=== PATIENT | male | born 1990 | race Caucasian/White ===

== ENCOUNTER 2017-11-24 12:33 | Emergency (ER) | payer OTHER ==
[~2017-11-24] VITALS: Ht 175.3 cm; Wt 61.4 kg
[~2017-11-24 12:33] MED LIST: CYCL-1 PO; ONDA8TAB9 PO
[2017-11-24 13:19] LABS: BASOPHILS % (AUTO) 0 % (0-1); EOSINOPHILS % (AUTO) 0.3 % (0-6); HEMATOCRIT 46.9 % (42.0-52.0); HEMOGLOBIN 15.9 g/dl (14.0-17.9); LYMPHOCYTES # (AUTO) 0.7 X10'3 (1.1-4.8); LYMPHOCYTES % (AUTO) 6.1 % (21-51); MEAN CORPUSCULAR HEMOGLOBIN 28.9 PG (27.0-31.0); MEAN CORPUSCULAR VOLUME 84.9 FL (78-98); MEAN PLATELET VOLUME 8.7 FL (7.4-10.4); MONOCYTES # (AUTO) 0.2 X10'3 (0-0.9); MONOCYTES % (AUTO) 1.3 % (2-12); NEUTROPHILS # (AUTO) 10.7 X10'3 (1.8-7.7); NEUTROPHILS % (AUTO) 92.3 % (42-75); PLATELET COUNT 116 X10'3 (140-440); RED BLOOD COUNT 5.52 X10'6 (4.70-6.10); RED CELL DISTRIBUTION WIDTH 12.3 % (11.5-14.5); WHITE BLOOD COUNT 11.6 X10'3 (4.5-11.0)
[2017-11-24 13:35] LABS: ALANINE AMINOTRANSFERASE 24 U/L (12-78); ALBUMIN 3.5 G/DL (3.4-5.0); ALBUMIN/GLOBULIN RATIO 1.1 (1.1-1.5); ALKALINE PHOSPHATASE 65 IU/L (46-116); ANION GAP 7 (8-16); ASPARTATE AMINO TRANSFERASE 6 U/L (10-37); BILIRUBIN,TOTAL 1.3 MG/DL (0.1-1.0); BLOOD UREA NITROGEN 15 MG/DL (7-18); CHLORIDE 102 MMOL/L (99-107); CREATININE 1.36 MG/DL (0.60-1.10); GLUCOSE 100 MG/DL (70-104); POTASSIUM 3.8 MMOL/L (3.5-5.1); SODIUM 137 MMOL/L (135-145); TOTAL CARBON DIOXIDE 28.5 MMOL/L (24-32); TOTAL PROTEIN 6.7 G/DL (6.4-8.2); eGFR 64 ML/MIN
[2017-11-24] MEDS ORDERED: acetaminophen 325mg tablet PO STA (14:29)
[2017-11-24] MEDS ORDERED: normal saline 1000ML IV soln IV ONE (14:30)
[2017-11-24] MEDS ORDERED: albuterol 2.5 MG/3 ML nebule NEB ONE (14:30)
[2017-11-24] MEDS ORDERED: CefTRIAXone 2gm/D5W 50ml 50 ML IV ONE (14:40)
[2017-11-24] MEDS ORDERED: morphine 4 MG/ML inj SYRINge IV ONE ×2 (15:15→17:05)
[2017-11-24] MEDS ORDERED: LORazepam 2 mg/ml vial IV ONE (15:15)
[2017-11-24] MEDS ORDERED: GUAI473S11 PO (16:09)
[2017-11-24] MEDS ORDERED: AZIT250T2 PO (16:09)
[2017-11-24] MEDS ORDERED: CEPH-571 PO (16:09)
[2017-11-24] MEDS ORDERED: PRED20TA PO (16:09)
[2017-11-24] MEDS ORDERED: ALBU6.7H INH (16:09)
[2017-11-24] MEDS ORDERED: ketorolac trometh. 30mg/ml inj. IV ONE (17:05)
[2017-11-24] MEDS ORDERED: methylPREDNISolone sod succ 125mg/2ml vial IV ONE (17:05)
[2017-11-24 17:52] VITALS: BP 103/56
== END 2017-11-24 17:54 | disposition home or self-care (01) ==
LOC: ER 12:34
DX: J18.1 Lobar pneumonia, unspecified organism (principal); F17.200 Nicotine dependence, unspecified, uncomplicated; Z98.890 Other specified postprocedural states; Z88.0 Allergy status to penicillin; Z79.899 Other long term (current) drug therapy
CPT/HCPCS: 36415; 71046; 80053; 83605; 85025; 87040; 87077; 87186; 94640; 94760; 96365; 96375; 96376; 99285; J0696; J1885; J2060; J2270; J2930; J7030

== ENCOUNTER 2023-10-13 15:39 | Emergency (ER) | payer MEDICAID, OTHER ==
[~2023-10-13] VITALS: Ht 172.7 cm; Wt 59.1 kg
[~2023-10-13 15:39] MED LIST changes: +ALBU6.7H14 INH; +CEPH-571 PO
[2023-10-13 15:40] VITALS: BP 129/85; PULSE 94; O2SAT 100
[2023-10-13] MEDS: HYDROcodone/acetaminophen 10/325mg tab PO ONE (19:01)
[2023-10-13] MEDS: ondansetron 4mg rapidly disintigrating tab PO ONE (19:02)
[2023-10-13 20:50] VITALS: RESP 17; TEMP 98
== END 2023-10-13 20:52 | disposition home or self-care (01) ==
LOC: ER 15:40
DX: S06.0X0A Concussion without loss of consciousness, initial encounter (principal); S01.112A Laceration without foreign body of left eyelid and periocular area, initial encounter; Z88.0 Allergy status to penicillin; W22.8XXA Striking against or struck by other objects, initial encounter; Y93.89 Activity, other specified; Y92.89 Other specified places as the place of occurrence of the external cause; Y99.8 Other external cause status
CPT/HCPCS: 70450; 70486; 99284; J7030; A6449

== ENCOUNTER 2024-02-07 12:56 | Emergency (ER) | payer MEDICAID ==
[~2024-02-07] VITALS: Ht 170.2 cm; Wt 65.0 kg
[2024-02-07 12:56] VITALS: BP 147/91; PULSE 110; RESP 18; TEMP 97.4; O2SAT 97
[2024-02-07] MEDS: TETanus/Pertussis (Acell)/Diphther VAC/PF (Tdap-Adult) 0.5ml syringe IMVAC ONE (14:38)
== END 2024-02-07 15:09 | disposition home or self-care (01) ==
LOC: ER 12:56
DX: S61.411A Laceration without foreign body of right hand, initial encounter (principal); Z88.0 Allergy status to penicillin; Z79.899 Other long term (current) drug therapy; Z79.2 Long term (current) use of antibiotics; Z98.890 Other specified postprocedural states; Z72.89 Other problems related to lifestyle; X58.XXXA Exposure to other specified factors, initial encounter; Y93.89 Activity, other specified; Y92.89 Other specified places as the place of occurrence of the external cause; Y99.8 Other external cause status
CPT/HCPCS: 12001; 73120; 90471; 90715; 99283; J7030; A6258; A6449

== ENCOUNTER 2024-08-28 19:03 | Emergency (ER) | payer MEDICAID ==
[~2024-08-28] VITALS: Ht 172.7 cm; Wt 62.1 kg
[2024-08-28] MEDS ORDERED: iohexol 300mg/ml 100ml inj. ONE (19:29)
[2024-08-28 19:43] LABS: BASOPHILS # (AUTO) 0.1 X10'3 (0-0.2); EOSINOPHILS # (AUTO) 0.1 X10'3 (0-0.9); EOSINOPHILS % (AUTO) 0.9 % (0-6); HEMATOCRIT 48.4 % (42.0-52.0); HEMOGLOBIN 16.5 g/dl (14.0-17.9); LYMPHOCYTES # (AUTO) 2.1 X10'3 (1.1-4.8); LYMPHOCYTES % (AUTO) 25.8 % (21-51); MEAN CORPUSCULAR HEMOGLOBIN 29.6 PG (27.0-31.0); MEAN CORPUSCULAR HGB CONC 34.1 g/dL (33.0-36.5); MEAN CORPUSCULAR VOLUME 86.7 FL (78-98); MEAN PLATELET VOLUME 7.4 FL (7.4-10.4); MONOCYTES # (AUTO) 0.6 X10'3 (0-0.9); MONOCYTES % (AUTO) 7.7 % (2-12); NEUTROPHILS # (AUTO) 5.2 X10'3 (1.8-7.7); NEUTROPHILS % (AUTO) 64.6 % (42-75); PLATELET COUNT 288 X10'3 (140-440); RED BLOOD COUNT 5.58 X10'6 (4.70-6.10); RED CELL DISTRIBUTION WIDTH 13.6 % (11.5-14.5)
[2024-08-28 19:45] LABS: ALBUMIN 4.1 G/DL (3.4-5.0); ANION GAP 7 (8-16); BLOOD UREA NITROGEN 19 MG/DL (7-18); BUN/CREATININE RATIO 16.8 (10.0-20.0); CALCIUM 10.1 MG/DL (8.5-10.1); CHLORIDE 103 MMOL/L (99-107); CREATININE 1.13 MG/DL (0.60-1.10); GLUCOSE 104 MG/DL (70-104); POTASSIUM 4.1 MMOL/L (3.5-5.1); SODIUM 139 MMOL/L (135-145); TOTAL CARBON DIOXIDE 29.1 MMOL/L (24-32); eCRCL 83 ML/MIN; eGFR 76 ML/MIN
[2024-08-28] MEDS: morphine 4 MG/ML inj SYRINge IV ONE (19:47)
[2024-08-28] MEDS: ondansetron/PF 4mg/2ml inj IV ONE (19:48)
[2024-08-28] MEDS: normal saline 1000ml 1,000 ML IV ONE (20:05)
[2024-08-28] MEDS: metroNIDAZOLE-Flagyl 500mg/NS 100 ML IV ONE (20:06)
[2024-08-28] MEDS: CefTRIAXone 2gm/D5W 50ml BAG 50 ML IV ONE (20:06)
[2024-08-28] MEDS: midazolam 1 mg/ML 2ml injection IV ONE (20:06)
[2024-08-28] MEDS: LIDOcaine/epinephrine/tetracaine TOPICAL sol 3 ML syringe TOP ONE (20:50)
[2024-08-28] MEDS: LIDOcaine 1% W/epiNEPHrine 1:100,000 20ml vial IJ ONE (20:50)
[2024-08-28] MEDS: ketorolac trometh 15mg/ml vial 15 MG/ML ML IV ONE (21:15)
[2024-08-28 21:43] LABS: BILIRUBIN,URINE NEGATIVE (Neg); CLARITY,URINE CLEAR (Clear); COLOR,URINE YELLOW (Yellow); GLUCOSE, URINE NEGATIVE (Neg); KETONES,URINE NEGATIVE (Neg); LEUKOCYTE ESTERASE ,URINE NEGATIVE (Neg); NITRITES, URINE NEGATIVE (Neg); OCCULT BLOOD,URINE NEGATIVE (Neg); PROTEIN,URINE NEGATIVE (Neg); UROBILINOGEN,URINE 0.2 E.U/dL (0.2-1.0)
[2024-08-28 21:46] LABS: UA COLLECTION TYPE URINAL
[2024-08-28] MEDS ORDERED: SULF1TAB49 PO (21:51)
[2024-08-28] MEDS: bacitracin 15gm ointment TP ONE (22:14)
[2024-08-28 22:16] LABS: URINE AMPHETAMINE SCREEN POSITIVE (Neg); URINE BARBITUATE SCREEN NEGATIVE (Neg); URINE BENZODIAZEPINES SCREEN POSITIVE (Neg); URINE CANNABINOID SCREEN NEGATIVE (Neg); URINE COCAINE SCREEN NEGATIVE (Neg); URINE METHADONE SCREEN NEGATIVE (Neg); URINE OPIATE SCREEN POSITIVE (Neg); URINE PHENCYCLIDINE SCREEN NEGATIVE (Neg)
[2024-08-29 05:43] VITALS: BP 141/87; PULSE 109; RESP 13; TEMP 97; O2SAT 98
== END 2024-08-28 22:00 | disposition home or self-care (01) ==
LOC: ER 19:04
DX: S51.011A Laceration without foreign body of right elbow, initial encounter (principal); Z88.0 Allergy status to penicillin; V29.99XA Rider (driver) (passenger) of other motorcycle injured in unspecified traffic accident, initial encounter; Y93.89 Activity, other specified; Y92.89 Other specified places as the place of occurrence of the external cause; Y99.8 Other external cause status
CPT/HCPCS: 12001; 36415; 70450; 71260; 72125; 73080; 73564; 74177; 80048; 80305; 81003; 85025; 86885; 86900; 86901; 96365; 96368; 96375; 99285; J0696; J1885; J2250; J2270; J2405; J3490; J7030; L0172; Q9967; 12004; A4615; A4620; A6258; A6446; A6449

== ENCOUNTER 2024-11-23 14:44 | Emergency (ER) | payer MEDICAID ==
[~2024-11-23] VITALS: Ht 175.3 cm; Wt 63.6 kg
[2024-11-23 14:48] VITALS: BP 153/93; PULSE 100; TEMP 98.4; O2SAT 98
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
--- NOTE | 2024-11-23 15:52 | RADIOLOGY REPORT ---
CLINICAL INDICATION: left ankle pain TECHNIQUE: 3 radiographic views of the left ankle were obtained. Comparison: DI ELBOW, COMPLETE (3VW MIN) on DOS: 08/28/24 FINDINGS/IMPRESSION: There is no evidence of acute fracture or dislocation. The visualized joint space is well maintained. The alignment is anatomical. There is no radiopaque foreign body.
[2024-11-23 16:25] VITALS: RESP 16
[2024-11-23] MEDS: ketorolac trometh 15mg/ml vial 15 MG/ML ML IM ONE (16:25)
== END 2024-11-23 16:33 | disposition home or self-care (01) ==
LOC: ER 14:44
DX: M25.572 Pain in left ankle and joints of left foot (principal); Z88.0 Allergy status to penicillin; W22.09XA Striking against other stationary object, initial encounter; Y93.89 Activity, other specified; Y92.89 Other specified places as the place of occurrence of the external cause; Y99.8 Other external cause status
CPT/HCPCS: 29515; 73610; 96372; 99284; J1885; 29125